=== PATIENT | male | born 1940 | race Caucasian/White ===

== ENCOUNTER 2016-12-08 19:11 | Inpatient (IN) ==
--- NOTE | 2016-12-08 19:15 | Emergency Department Note ---
Disposition Clinical Impression: Chest pain, Bronchitis Disposition: Admitted As Inpatient Condition: Good General Adult HPI - General Chief complaint: ED Chest Pain Stated complaint: Cp Time Seen by Provider: 12/08/16 19:13 - Related Data Home Medications Medication Instructions Recorded Confirmed Clopidogrel [Plavix] 75 mg PO DAILY 12/08/16 12/08/16 Dorzolamide/Timolol [Cosopt] 1 drop BOTH EYES BID 12/08/16 12/08/16 Hydrochlorothiazide 12.5 mg PO 2XW PRN 12/08/16 12/08/16 Latanoprost [Xalatan] 1 drop BOTH EYES HS 12/08/16 12/08/16 Losartan Potassium [Cozaar] 100 mg PO DAILY 12/08/16 12/08/16 Metoprolol [Lopressor] 50 mg PO BID 12/08/16 12/08/16 Nitroglycerin 0.4 mg SL Q5MIN PRN 12/08/16 12/08/16 Rosuvastatin [Crestor] 40 mg PO HS 12/08/16 12/08/16 Allergies Allergy/AdvReac Type Severity Reaction Status Date / Time No Known Allergies Allergy Verified 12/08/16 19:31 Course Vital Signs Temperature 99.3 F 12/08/16 19:13 Pulse Rate 74 12/08/16 19:13 Respiratory Rate 18 12/08/16 19:13 Blood Pressure 178/91 12/08/16 19:13 O2 Sat by Pulse Oximetry 95 12/08/16 19:13 Temperature 99.3 F 12/08/16 19:13 Pulse Rate 81 12/08/16 20:26 Respiratory Rate 18 12/08/16 21:20 Blood Pressure 144/75 12/08/16 21:20 O2 Sat by Pulse Oximetry 93 L 12/08/16 20:26 Oxygen Delivery Oxygen Delivery Room Air Medical Decision Making - Lab Data Lab Results 12/08/16 12/08/16 Range/Units 19:36 19:36 PT 12.3 H (9.4-12.1) Seconds INR 1.1 APTT 27.4 (26.0-36.0) Seconds Troponin I 0.03 (0-0.03) ng/mL Attestation Statement - Attestation Attestation: I examined this patient and my medical decision-making was reviewed with the POWER [employer]ALL[employer] MACHINE OPERATOR/PA/Advanced Practice Nurse/Resident Physician. I agree with the documented findings, disposition and treatment plan as described except to the extent set forth below. [id number] time provided in conjunction with resident physician [facility]. He appears in no acute distress on exam. Plan of care and management discussed by me with the resident
--- NOTE | 2016-12-08 19:18 | Emergency Department Note ---
Disposition Clinical Impression: Bronchitis Chest pain Qualifiers: Chest pain type: unspecified Qualified Code(s): R07.9 - Chest pain, unspecified Disposition: Admitted As Inpatient Condition: Good [facility]errals: [facility]Primary Care Provider[facility] - Forms: ED Satisfaction Letter Time of Disposition: 20:27 Chest Pain HPI - General Chief Complaint: ED Chest Pain Stated Complaint: Cp Time Seen by Provider: 12/08/16 19:13 Source: patient, EMS Mode of arrival: EMS Limitations: no limitations Vital Signs Reviewed: Yes Nursing Notes Reviewed: Yes - History of Present Illness HPI Narrative: Patient is a 76-year-old male with past medical history of CAD, multiple previous MRIs, multiple previous stents, bypass surgery, hypertension, high cholesterol, prediabetic, CKD. He presents today as a transfer from the [facility]. The patient states that he was having upper respiratory symptoms of significant coughing, rhinorrhea. Today, he began developing and centered chest pain that was dull in nature, constant. It was initially severe and then is now dull. Denies any other symptoms of nausea, vomiting, fevers, abdominal pain, current shortness of breath. Patient thinks that this could be due to coughing and bronchitis. However, due to significant cardiac history, with the [facility] to be evaluated further. Troponin was 0.02 at the [place] , no acute ST changes on EKG from the [facility], labs showed CKD with creatinine at 1.3. Chest x-ray showed no acute cardiopulmonary process. - Related Data Allergies Allergy/AdvReac Type Severity Reaction Status Date / Time No Known Allergies Allergy Verified 12/08/16 19:31 All systems ED: reviewed and negative except as stated. Chest Pain PMH - Past Medical History Medical history: Reports: coronary artery disease, hyperlipidemia, hypertension Physical Exam - General Limitations: no limitations General appearance: alert, in no apparent distress - Head Head exam: atraumatic, normocephalic, normal inspection - Eye Eye exam: Present: normal appearance, PERRL, EOMI - ENT ENT exam: normal exam, normal oropharynx, mucous membranes moist - Neck Neck exam: Present: normal inspection, full ROM, trachea midline - Chest Chest inspection: Present: normal inspection, symmetric chest wall rise. Absent : tenderness, rash - Respiratory Respiratory exam: Present: wheezes (Wheezes in bilateral lower lobes) - Cardiovascular Cardiovascular exam: Present: regular rate, normal rhythm, normal heart sounds - Abdominal Exam Abdominal exam: Present: soft, Non-Tender. Absent: tenderness, distention, guarding, rebound, rigidity - Extremities Exam Extremities exam: Present: normal inspection, full ROM. Absent: tenderness, pedal edema - Back Exam Back exam: Present: normal inspection, full ROM. Absent: tenderness - Neurological Exam Neurological exam: Present: alert, oriented X3 - Psychiatric Psychiatric exam: Present: normal affect, normal mood - Skin Skin exam: Present: warm, dry, intact, normal color Course Course Narrative: No acute distress on presentation. Physical exam was benign except for wheezes heard in bilateral LL. No tenderness to palpation of the chest. Patient says the chest pain. He has agreed to take nitroglycerin. This should help with chest pain and hypertension. We will repeat EKG here, troponin level and then we will admit the patient for chest pain rule out. Patient's HEART score is 5, and with current chest pain and multiple risk factors, would not feel comfortable sending home without further evaluation. 20:13 Repeat EKG here shows NSR with no acute ST changes. Trop 0.03. Chest pain is gone after nitroglycerin tablet. Due to significant risk factors and chest pain going away after nitroglycerin, we will admit the patient for chest pain brought. Patient also has signs and symptoms of bronchitis. 20:[address] Song for admission. Vital Signs Temperature 99.3 F 12/08/16 19:13 Pulse Rate 74 12/08/16 19:13 Respiratory Rate 18 12/08/16 19:13 Blood Pressure 178/91 12/08/16 19:13 O2 Sat by Pulse Oximetry 95 12/08/16 19:13 Temperature 99.3 F 12/08/16 19:13 Pulse Rate 74 12/08/16 19:13 Respiratory Rate 18 12/08/16 19:13 Blood Pressure 178/91 12/08/16 19:13 O2 Sat by Pulse Oximetry 95 12/08/16 19:13 Oxygen Delivery Oxygen Delivery Room Air Chest Pain - MDM Narrative Medical decision making narrative: No acute distress on presentation. Physical exam was benign except for wheezes heard in bilateral LL. No tenderness to palpation of the chest. Patient says the chest pain. He has agreed to take nitroglycerin. This should help with chest pain and hypertension. We will repeat EKG here, troponin level and then we will admit the patient for chest pain rule out. Patient's HEART score is 5, and with current chest pain and multiple risk factors, would not feel comfortable sending home without further evaluation. 20:13 Repeat EKG here shows NSR with no acute ST changes. Trop 0.03. Chest pain is gone after nitroglycerin tablet. Due to significant risk factors and chest pain going away after nitroglycerin, we will admit the patient for chest pain brought. Patient also has signs and symptoms of bronchitis. 20:[address] Song for admission. - Medical Records Medical records reviewed: Yes I reviewed the patient's medical records. - Lab Data Lab results reviewed: Yes I reviewed the patient's lab results. Lab Results 12/08/16 12/08/16 Range/Units 19:36 19:36 PT 12.3 H (9.4-12.1) Seconds INR 1.1 APTT 27.4 (26.0-36.0) Seconds Troponin I 0.03 (0-0.03) ng/mL - Radiology Data Radiology results reviewed: Yes I reviewed the patient's radiology results. - EKG Data EKG attestation: Yes I reviewed and interpreted this EKG. EKG results narrative: 12/08/2016 at 19:23. Normal sinus rhythm. Rate 77. QTC 432. Left axis deviation. T-wave inversions in aVR, aVL, V1 occasional PVCs, no acute ST elevation or depression. No previous EKG on file for comparison. Heart Score - Score History: Moderately Suspicious EKG: Normal Age: Greater than 65 Risk Factors: Equal/Greater than 3 risk factor or history of atherosclerotic disease Troponin: Less than normal limit HEART Score Total: 5 S.B.A.R. - S.B.A.R. Situation: Demographics, MOA Background: Presenting Complaint, Relevant PMH, Meds, & Allergies Assessment: Vital Signs, Course and respsone to treatment, Exam Concerns, Patient/Family Expectation, Pertinant Lab Results, Outstanding Labs Recommendation: Barrier(s) to disposition, Recommendation based on pending studies, treatments, or consults S.B.A.R. Report Given to: Dr. Duncan DuboseAAndrew Repor Time: 20:28
[2016-12-08] MEDS ORDERED: Nitroglycerin 0.4 MG TAB.SUBL SL PRN ×2 (19:31→22:15)
[2016-12-08 19:50] LABS: INR 1.1; Prothrombin Time 12.3 Seconds (9.4-12.1)
[2016-12-08 19:53] LABS: Activated Partial Thrombo Time 27.4 Seconds (26.0-36.0)
[2016-12-08] MEDS ORDERED: Latanoprost 2.5 ML BOTTLE BOTH EYES SCH (22:15)
[2016-12-08] MEDS ORDERED: Pantoprazole 40 MG VIAL IVP STA (22:19)
[2016-12-08] MEDS ORDERED: *HR* Morphine 2 MG/ML SYRINGE IVP PRN (22:19)
[2016-12-08] MEDS ORDERED: Naloxone 0.4 MG/ML INJ IVP PRN (22:19)
[2016-12-08] MEDS ORDERED: *HR* Promethazine 25 MG/ML VIAL IVP PRN (22:19)
[2016-12-08] MEDS ORDERED: Nicotine 21 MG PATCH.TD24 TD PRN (22:19)
[2016-12-08] MEDS ORDERED: *HR* OxyCODONE Immed Rel 5 MG TABLET PO PRN (22:19)
[2016-12-08] MEDS ORDERED: Benzonatate 100 MG CAPSULE PO PRN (22:19)
[2016-12-08] MEDS ORDERED: Acetaminophen 325 MG TABLET PO PRN (22:19)
[2016-12-08] MEDS ORDERED: Albuterol 2.5 MG/3 ML NEBULIZER IH PRN (22:19)
[2016-12-08] MEDS ORDERED: 0.9 % Sodium Chloride 1,000 ML IVC SCH (22:30)
[2016-12-08] MEDS ORDERED: Azithromycin 500 MG in D5% in Water 250 ML IVPB SCH (23:00)
[2016-12-08] MEDS: Ipratropium/Albuterol Neb 3 ML IH SCH (23:13)
[2016-12-08 23:19] LABS: Magnesium 1.8 mg/dL (1.6-2.6); Phosphorous 2.9 mg/dL (2.3-4.7)
[2016-12-08] MEDS: *HR* Heparin 5,000 UNIT/ML VIAL SQ SCH (23:22)
[2016-12-08] MEDS: Dorzolamide/Timolol OPTH 10 ML BOTTLE BOTH EYES SCH (23:31)
--- NOTE | 2016-12-09 01:54 | Internal Med History&Physical ---
Date of Encounter: 12/08/16 Time of Encounter: 22:30 Assessment and Plan (1) Acute chest wall pain Current visit: Yes Status: Acute . (2) Chest pain, rule out acute myocardial infarction Current visit: Yes Status: Acute . (3) Chest pain with moderate risk of acute coronary syndrome Current visit: Yes Status: Acute . (4) HTN (hypertension) Current visit: Yes Status: Chronic . Qualifiers: Hypertension type: essential hypertension Qualified Code(s): I10 - Essential (primary) hypertension (5) HLD (hyperlipidemia) Current visit: Yes Status: Chronic . Qualifiers: Hyperlipidemia type: mixed hyperlipidemia Qualified Code(s): E78.2 - Mixed hyperlipidemia (6) CAD (coronary artery disease), grindstone coronary artery Current visit: Yes Status: Chronic . Qualifiers: [place] vs. transplanted heart: grindstone heart Associated angina: angina presence unspecified Qualified Code(s): I25.10 - Atherosclerotic heart disease of grindstone coronary artery without angina pectoris (7) Hx of CABG Current visit: Yes Status: Chronic . (8) History of PTCA Current visit: Yes Status: Chronic . (9) URI (upper respiratory infection) Current visit: Yes Status: Acute . Qualifiers: URI type: unspecified URI Qualified Code(s): J06.9 - Acute upper respiratory infection, unspecified (10) Sinobronchitis Current visit: Yes Status: Acute . (11) Pleuritic chest pain Current visit: Yes Status: Acute . (12) Acute and chronic respiratory failure with hypoxia Current visit: Yes Status: Acute . (13) Sleep apnea with use of continuous positive airway pressure (CPAP) Current visit: Yes Status: Chronic . (14) COPD (chronic obstructive pulmonary disease) with acute bronchitis Current visit: Yes Status: Acute . Internal Medicine - H&P: HPI Chief complaint: Chest pain Admitted From: Hospital to Hospital Transfer (Transfer [facility] urgent care center to [facility] emergency department) Plans for Post Hospital Care: Home History of present illness: Mr. Cheney is a 76 year old male I am seeing the patient with medical history significant for CAD/multiple PTCAstents/YZPAe1o/AMIs, COPD, MOISES (nocturnal Cpap) , glaucoma, CKD III,type II pre-DM, early Parkinson's, degenerative osteoarthritis, osteopenia, diverticulosis coli/diverticulitis/hemorrhoids, obesity, former smoker The patient was visited and interviewed and examined. Patient is admitted to [facility] via the emergency department as a referral from [facility] urgent care center with the patient presented company of family with report of midsternal chest pain that began the morning of presentation associated with shortness of breath. Dull. Constant. Intensity seemed to vary with respiratory effort, specifically cough or movement. The quite severe and a 6-8/10 in severity and it subsided to a more dull boring 2-4/10 severity accompanying him to the emergency room. Patient had taken a full dose aspirin per morning of onset of symptoms. Patient did not take sublingual nitroglycerin in his possession. He had symptoms of what he thought to be a chest cold with chest congestion and rhinorrhea that began 2-3 days prior to onset of these symptoms. He did experience repetitive (hard)coughing with feelings of shortness of air at rest and with activity and sensation of audible wheezing. At times has been productive of mucoid sputum. Volume has been scant. He denies any hemoptysis. His pain was first experience of following repetitive coughing and he continues to experience a feeling of discomfort with coughing in the mid chest [facility]: Sg 97.2 pulse 76-88 respirations 18-20 BP 170-187/83-86 O2 saturation 98% on room air. CK 186. ENT -proBNP 227. Metabolic panel normal. BUN 13 creatinine 1.33 GFR 55. Hepatic function normal. Magnesium 1.8. WBC 7.5 hemoglobin 14.4 platelets 154,000. Differential a increase in monocytes. Troponin measurement 0.02. PA and lateral chest x-ray demonstrated no active cardiopulmonary process. Status post CABG. EKG demonstrated normal sinus rhythm at 86 bpm pulmonary disease pattern noted with left anterior fascicular block and left axis deviation and voltage in limb and precordial leads and poor R-wave progression likely transition V5 and V6 Q-wave in lead 3 rule out age-indeterminate inferior wall injury. Rule out age-indeterminate anterior wall injury. Nonspecific ST-T wave changes. Possible left atrial enlargement. Findings in the ED: Temperature 99.3 pulse 74-81 respirations 18 BP 144-178/75-91 and O2 saturation 93-95% room air. PT 12.3 INR 1.1 PTT 27.4. Troponin measurement 0.3. EKG normal sinus rhythm rate 77. Left axis deviation. Nonspecific ST-T wave changes. No acute ischemic changes. Premature ventricular contractions. We will progression with late transition. Age-indeterminate inferior wall and anterior wall injuries. Left atrial enlargement. Left anterior fascicular block. Preliminary impression suggests atypical chest pain syndrome in the setting of upper respiratory tract infection with a sinobronchial features and reactive airway symptoms with cough and bronchospasm. The quality of pain with cough more pleuritic. Voiding studies thus far nondiagnostic for cardiogenic focus. Hypertension presents poorly controlled. Relative resting hypoxemia noted. Mild chronic kidney disease. Given patient's history/comorbidities in the setting of his advanced age and presenting complaints and findings he is at risk for further acute clinical decline and morbidity. Workup and treatment will proceed comprehensively. Cumulative laboratory and radiographic data base was reviewed, considered and discussed. Pertinent ancillary medical records including [facility], [facility] and [facility] documentation, when available, was reviewed and considered. Given the patient's presenting concerns, past medical history, clinical findings and symptoms, he is admitted at this time will undergo further evaluation and disposition. Orders were written as per the computerized physician order takers supervisor system.......................................................................... .................... Consultative opinion and will be sought as clinical circumstances justify. Pain management needs will be addressed. Laboratory and radiographic data base will be updated as appropriate. Studies include: Cultures of blood and sputum, CPK, cardiac injury panel, BNP, coags, metabolic and hematologic panel, magnesium, phosphorus, ionized calcium, thyroid panel, lipid profile, A1c, C-peptide, CRP, sedimentation rate, respiratory infection profile, respiratory virus panel, blood gas, lactic acid, serologies, etc. Precautions: Aspiration, fall, delirium protocol/surveillance initiated. Telemetry with continuous hemodynamic monitoring and pulse oximetry initiated. Empiric antibody coverage: Intravenous Rocephin and azithromycin pending culture data. Special studies: CT chest, chest x-ray, telemetry, EKG, echocardiogram. Pulmonary toilet: Incentive spirometry, aerosol bronchodilator, mucolytic, antitussive, supplemental oxygen. Corticosteroid therapy. CPAP/BiPAP supplemental oxygen delivery. Aerosol Mucomyst therapy. Fluid and electrolyte repletion efforts will proceed. Careful attention to fluid balance and renal recovery will be emphasized. Avoidance of nephrotoxic exposure and adverse drug drug interaction in the setting of impaired renal function will be monitored closely. Acute coronary syndrome protocol/surveillance initiated. DVT and PUD prophylaxis initiated: PPI therapy, intermittent pneumatic cuffs. Subcutaneous heparin/Lovenox. Early ambulation will be encouraged. Immunization updates recommended. Influenza and pneumococcal vaccinations as part of ongoing preventative healthcare recommendations strongly recommended. Smoking cessation counseling briefly addressed. Patient is a former smoker. Advanced care directive discussion briefly addressed. Patient does not declare any healthcare restrictions at this time. Cardiovascular risk appraisal and cardiovascular risk reduction efforts will be emphasized. Physical and occupational therapy may be counseled to evaluate/assess patient's functional capacity and progress mobility if circumstances justify. Outpatient medication schedules will be reviewed, confirmed and facilitated as appropriate. Reconciliation of home treatments including adjustments, substitutions and reintroduction into the treatment regimen will address necessary maintenance therapies for chronic pre-existing medical conditions. Plan of care has been reviewed and discussed in detail with the patient. Questions addressed. Hospital course will be dependent upon clinical findings, treatment response and potential consultative interventions. Patient is at risk for further acute clinical decline and morbidity due to advanced age, presenting chief complaints, clinical findings and comorbidities. Condition is serious. Prognosis is cautiously optimistic. CODE STATUS is full. Past Med Surg Social Fam HX - Past Medical History Source: old records reviewed Medical history: arthritis, COPD (Obstructive sleep apnea. Nocturnal CPAP dependent. Community-acquired pneumonias 2.), coronary artery disease, diabetes, glaucoma, hyperlipidemia, hypertension, myocardial infarction, osteoporosis, renal disease ( H/O Pyrone's disease;treated.), other Psychiatric history: no psych history - Past Surgical History Surgical History: angioplasty/stent (Multiple angioplasties and stents.), coronary bypass (CABG) (Three-vessel), orthopedic, other (Compound fracture left forearm repair. Fracture left forearm repair.), sinus surgery ( Tonsillectomy adenoidectomy.), other (Colonoscopy. Anoscopy. Upper endoscopy. Camera/capsule endoscopy.) - Social History Smoking Status: Former smoker Smokeless Tobacco Status: No Alcohol use: none Drug use: none Occupational status: retired Current living situation: With Family Activity Level: Independent ambulation, Mostly sedentary - Family History Father Adopted: [place]: Iris Cheney Family Member Ethnicity: Non- Living Status: Age at : 82 Cause of : Lung Cancer Hx Family Cancer: Yes Hx Family Endocrine Disorder: Yes Internal Medicine - H&P: Meds Clopidogrel [Plavix] 75 mg PO DAILY 12/08/16 [History] Dorzolamide/Timolol [Cosopt] 1 drop BOTH EYES BID 12/08/16 [History] Hydrochlorothiazide 12.5 mg PO 2XW PRN 12/08/16 [History] Latanoprost [Xalatan] 1 drop BOTH EYES HS 12/08/16 [History] Losartan Potassium [Cozaar] 100 mg PO DAILY 12/08/16 [History] Metoprolol [Lopressor] 50 mg PO BID 12/08/16 [History] Nitroglycerin 0.4 mg SL Q5MIN PRN 12/08/16 [History] Rosuvastatin [Crestor] 40 mg PO HS 12/08/16 [History] Allergies No Known Allergies Allergy (Verified 12/08/16 19:31) All Systems PM: A 10-system review of systems was performed and is negative for pertinent findings except as documented above in the HPI. - Constitutional Constitutional: as per HPI, no chills, no fever(s), no night sweats - EENT Eyes: as per HPI, no change in vision, no discharge, no pain, no photophobia Ears: as per HPI, decreased hearing, no ear discharge, no ear pain, no tinnitus Nose, mouth and throat: nasal congestion, post-nasal drip, sinus pressure, other , no dysphagia, no nasal discharge, no neck pain, no sore throat - Cardiovascular Cardiovascular ROS IM: as per HPI, chest pain, dyspnea, no diaphoresis, no lightheadedness, no palpitations, no syncope - Respiratory Respiratory: as per HPI, cough, dyspnea, dyspnea on exertion, wheezing, chest congestion, pain with cough, no hemoptysis, no excessive phlegm production, no change in phlegm color - Gastrointestinal Gastrointestinal: as per HPI, no abdominal pain, no diarrhea, no hematemesis, no hematochezia, no melena, no nausea, no vomiting - Genitourinary Genitourinary ROS male: as per HPI - Musculoskeletal Musculoskeletal ROS IM: as per HPI, no numbness, no tingling - Integumentary Integumentary IM: as per HPI, no rash, no unusual bruising - Neurological Neurological ROS: as per HPI, no confusion, no convulsions, no focal weakness, no numbness, no tingling, no tremor(s) - Psychiatric Psychiatric: as per HPI - Endocrine Endocrine IM: as per HPI - Hematologic/Lymphatic Hematologic/Lymphatic: as per HPI, no easy bruising - Allergic/Immunologic Allergic/Immunologic: as per HPI - Constitutional Vitals: Temp Pulse Resp BP Pulse Ox 99.2 F 79 16 158/84 95 12/08/16 22:18 12/08/16 22:18 12/08/16 22:18 12/08/16 22:18 12/08/16 22:18 General appearance: Present: cooperative, mild distress, A&O X 3, pleasant, obese, answers questions appropriately - Head Head exam: Present: atraumatic, normocephalic - Eye Eye exam: Present: EOMI, PERRL, conjuntiva pink, sclera anicteric Pupils: Present: normal accommodation, PERRL - ENT ENT exam: Present: mucous membranes moist, normal external ear exam, normal oropharynx - Neck Neck exam general surgery: Present: full ROM, supple, trachea midline. Absent: lymphadenopathy, tenderness, nuchal rigidity - Respiratory Respiratory exam: Present: chest wall tenderness, decreased breath sounds, wheezes. Absent: accessory muscle use, rales, rhonchi - Cardiovascular Cardiovascular exam: Present: distant heart sounds, RRR, +S1, +S2. Absent: diastolic murmur, gallop, rubs, systolic murmur - GI/Abdominal GI/Abdominal exam: Present: normal bowel sounds, soft, no peritoneal signs. Absent: distended, tenderness - Extremities Exam Extremities exam: Present: full ROM, warm, radial pulses palpable and symetrical. Absent: calf tenderness, cyanotic, pedal edema - Neurological Exam Neurological exam: Present: alert, CN II-XII intact, oriented X3, no focal deficits. Absent: pronater drift, facial droop, speech deficit - Psychiatric Psychiatric exam: Present: normal affect, normal mood - Skin Skin exam: Present: dry, intact, warm. Absent: petechiae, rash, urticaria, vesicles Internal Med - H&P Results - Labs Labs: Cardiac Enzymes 02/03/17 Range/Units 22:54 Troponin I 0.01 (0-0.03) ng/mL - Impressions Vital Signs Temp Pulse Resp BP Pulse Ox 12/08/16 22:18 99.2 F 79 16 158/84 95 12/08/16 21:20 18 144/75 12/08/16 20:26 81 18 135/65 93 L 12/08/16 19:13 99.3 F 74 18 178/91 95 Intake and Output 12/08/16 12/08/16 12/09/16 15:59 23:59 07:59 Intake Total 250 / 250 Balance 250 / 250 Intake: IV Fluids 250 / 250 Zithromax 500 mg In 250 / 250 Dextrose 5% 250 ML @ 252 mls/hr IVPB Q24H [facility] Rx#: [id number] Other: Weight 91.444 kg Cardiac Enzymes 12/08/16 12/08/16 Range/Units 22:54 19:36 Troponin I 0.01 0.03 (0-0.03) ng/mL Abnormal lab results PT 12.3 Seconds (9.4-12.1) H 12/08/16 19:36 Allergies Allergy/AdvReac Type Severity Reaction Status Date / Time No Known Allergies Allergy Verified 12/08/16 19:31 Laboratory Results PT 12.3 Seconds (9.4-12.1) H 12/08/16 19:36 INR 1.1 12/08/16 19:36 APTT 27.4 Seconds (26.0-36.0) 12/08/16 19:36 Lactic Acid 1.9 mmol/L (0.5-2.2) 12/08/16 22:54 Phosphorus 2.9 mg/dL (2.3-4.7) 12/08/16 22:54 Magnesium 1.8 mg/dL (1.6-2.6) 12/08/16 22:54 Troponin I 0.01 ng/mL (0-0.03) 12/08/16 22:54 B-Natriuretic Peptide 67 pg/mL (0-100) 12/08/16 22:54 Lipase 37 Units/L (8-78) 12/08/16 22:54 - VTE Documentation of Mechanical Device: Graduated compression elastic hosiery
[2016-12-09 04:13] LABS: Basophils % 0.1 %; Eosinophils % 0.1 %; Hematocrit 40.5 % (37.5-50.1); Hemoglobin 13.4 g/dL (12.9-16.9); Immature Granulocytes % 0.4 % (0-4); Lymphocytes # 1.1 K/mcL (0.6-4.6); Mean Corpuscular HGB Conc 33.1 g/dL (31.6-35.5); Mean Corpuscular Hemoglobin 30.5 pg (28.0-33.3); Mean Corpuscular Volume 92.3 fL (83.0-100.0); Mean Platelet Volume 9.6 fL (9.4-12.4); Monocytes # 0.7 K/mcL (0.0-1.3); Monocytes % 9.4 %; Platelet Count 143 K/mcL (140-400); Red Blood Count 4.39 M/mcL (4.19-5.50); Red Cell Distribution Width 12.1 % (11.5-14.5)
[2016-12-09] MEDS: Ipratropium/Albuterol Neb 3 ML IH SCH ×2 (04:29→12:03)
[2016-12-09 04:32] LABS: Alanine Aminotransferase 19 Units/L (0-55); Albumin 3.6 g/dL (3.5-5.0); Albumin/Globulin Ratio 1.2 (1.1-2.2); Alkaline Phosphatase 57 Units/L (38-126); Aspartate Amino Transferase 23 Units/L (5-34); BUN/Creatinine Ratio 11 (6-26); Bilirubin,Total 0.8 mg/dL (0.2-1.2); Blood Urea Nitrogen 13 mg/dL (8-26); C-Reactive Protein 48 mg/L (Less than 5); Calcium 8.8 mg/dL (8.6-10.8); Carbon Dioxide 20 mEq/L (19-29); Chloride 101 mEq/L (98-109); Chol/HDL Ratio 2.5 (0-4.9); Cholesterol 130 mg/dL (< 200); Globulin 3.1 g/dL (2.4-3.5); Glucose 118 mg/dL (70-99); HDL Cholesterol 52 mg/dL (40-59); LDL Cholesterol,Calculated 64 mg/dL (0-99); Osmolality,Calculated 277 (280-300); Potassium 3.7 mEq/L (3.5-4.5); Sodium 133 mEq/L (136-145); Total Protein 6.7 g/dL (6.0-8.3); Triglycerides 69 mg/dL (< 150); eGFR For African Americans > 60 (> 60); eGFR For Non-African Americans > 60 (> 60)
[2016-12-09 05:07] LABS: Thyroid Stimulating Hormone 0.324 mcIU/mL (0.350-4.840)
[2016-12-09] MEDS ORDERED: Famotidine 20 MG/2 ML VIAL IVP SCH (06:00)
[2016-12-09 08:10] LABS: Adenovirus Not Detected (Not Detect); Coronavirus 229E Not Detected (Not Detect); Coronavirus HKU1 Not Detected (Not Detect); Coronavirus NL63 Not Detected (Not Detect); Coronavirus OC43 Not Detected (Not Detect); Human Metapneumovirus Not Detected (Not Detect); Human Rhinovirus/Enterovirus Not Detected (Not Detect); Influenza A Subtype 2009 H1 Not Detected (Not Detect); Influenza A Untypeable Not Detected (Not Detect); Influenza B Not Detected (Not Detect); Parainfluenza Virus 1 Not Detected (Not Detect); Parainfluenza Virus 2 Not Detected (Not Detect); Parainfluenza Virus 3 Not Detected (Not Detect)
[2016-12-09 08:11] LABS: Bordetella Pertussis Not Detected (Not Detect); Chlamydophila pneumoniae Not Detected (Not Detect); Mycoplasma pneumoniae Not Detected (Not Detect); Parainfluenza Virus 4 Not Detected (Not Detect); Respiratory Syncytial Virus Not Detected (Not Detect)
--- NOTE | 2016-12-09 08:54 | Discharge Summary ---
Date of Encounter: 12/09/16 Time of Encounter: 08:15 - Discharge Diagnosis (1) Bronchitis Priority: Primary Status: Acute Comments: Acute bronchitis (2) Pleuritic chest pain Priority: Secondary Status: Acute (3) CAD (coronary artery disease), [place] coronary artery Priority: Secondary Status: Chronic Qualifiers: [place] vs. transplanted heart: [place] heart Associated angina: angina presence unspecified Qualified Code(s): I25.10 - Atherosclerotic heart disease of [place] coronary artery without angina pectoris (4) HLD (hyperlipidemia) Priority: Secondary Status: Chronic Qualifiers: Hyperlipidemia type: mixed hyperlipidemia Qualified Code(s): E78.2 - Mixed hyperlipidemia (5) HTN (hypertension) Priority: Secondary Status: Chronic Qualifiers: Hypertension type: essential hypertension Qualified Code(s): I10 - Essential (primary) hypertension - Discharge Medications Prescriptions: Azithromycin [Zithromax Tri-Rubin] 500 mg PO DAILY #7 tablet Oseltamivir [Tamiflu] 75 mg PO BID #10 capsule Home Medications: Clopidogrel [Plavix] 75 mg PO DAILY 12/08/16 [History] Dorzolamide/Timolol [Cosopt] 1 drop BOTH EYES BID 12/08/16 [History] Hydrochlorothiazide 12.5 mg PO 2XW PRN 12/08/16 [History] Latanoprost [Xalatan] 1 drop BOTH EYES HS 12/08/16 [History] Losartan Potassium [Cozaar] 100 mg PO DAILY 12/08/16 [History] Metoprolol [Lopressor] 50 mg PO BID 12/08/16 [History] Nitroglycerin 0.4 mg SL Q5MIN PRN 12/08/16 [History] Rosuvastatin [Crestor] 40 mg PO HS 12/08/16 [History] Azithromycin [Zithromax Tri-Rubin] 500 mg PO DAILY #7 tablet 12/09/16 [Rx] Oseltamivir [Tamiflu] 75 mg PO BID #10 capsule 12/09/16 [Rx] Allergies/Adverse Reactions: Allergies No Known Allergies Allergy (Verified 12/08/16 19:31) Procedures/tests Complete & Pending: Procedures Performed prior 72 hours Category Date Time Status CT chest wo con [CT] Routine Cat Scan 12/09/16 07:[address] sinus wo con [CT] Routine Cat Scan 12/09/16 03:16 Completed EV echocardiogram Routine Y 12/09/16 03:16 Ordered Date of admission: 12/08/16 22:51 [facility] Discharging clinician: Linda Dolan Anticipated date of discharge: 12/09/16 - Patient Status Disposition: Home, Self-Care Condition: Good Overall status at discharge: patient is back to baseline - Discharge Instructions Instructions: Chest Pain (DC) Follow Up [facility]: [facility] [Primary Care Provider] - (in 1-2 weeks) - Diet and Activity Activity: resume usual activities as tolerated Diet: advance to your usual diet, low fat, low cholesterol, low salt diet Hospital course: Mr. Cheney is a 76 year old male with history of coronary artery disease, CABG who was observed in the hospital after presenting with pleuritic chest pain. He has been having cough. His troponins were trended. His EKG did not show any acute ST segment changes. His pain did not relieve after he was given nitroglycerin. He was started on treatment for acute bronchitis he underwent CT scan of the chest which showed findings suggestive of bronchitis. Patient was also positive for influenza A. He has been started on Tamiflu. He feels much better now and is stable to be discharged home. CT scan of his sinuses also showed acute sinusitis. He will complete a short course of azithromycin. - Time Spent with Patient Total time spent providing and/or coordinating discharge services: Less than 30 minutes (25 min) - Constitutional Vitals: Temp Pulse Resp BP Pulse Ox 98.5 F 70 16 154/81 95 12/09/16 07:11 12/09/16 07:11 12/09/16 07:11 12/09/16 07:11 12/09/16 07:11 General appearance: Present: cooperative, mild distress, A&O X 3, pleasant, obese, answers questions appropriately - Respiratory Respiratory exam: Present: CTAB. Absent: accessory muscle use, rales, rhonchi, wheezes - Cardiovascular Cardiovascular exam: Present: RRR, +S1, +S2. Absent: diastolic murmur, gallop, rubs, systolic murmur - GI/Abdominal GI/Abdominal exam: Present: normal bowel sounds, soft, no peritoneal signs. Absent: distended, tenderness - Extremities Exam Extremities exam: Present: warm, radial pulses palpable and symetrical. Absent : calf tenderness, cyanotic, pedal edema - VTE Documentation of Mechanical Device: Graduated compression elastic hosiery - Attending Attestation This document has been at least partially created by [employer] recognition technology by Dr. Dolan. Errors in grammar, wording or other phrases may exist. If errors are found after the documentation is signed, they will be addressed individually in the addendum section of this document when appropriate.
[2016-12-09 09:44] LABS: Bilirubin,Urine Negative (Negative); Blood,Urine Negative (Negative); Clarity,Urine Clear (Clear); Color,Urine Yellow (Yellow); Glucose,Urine (UA) Normal (Normal); Ketones,Urine Negative (Negative); Leukocyte Esterase,Urine Negative (Negative); Nitrite,Urine Negative (Negative); PH,Urine 6.5 pH Units (5.0-8.0); Protein,Urine Trace mg/dL (Neg-Trace); Specific Gravity,Urine 1.013 (1.010-1.025); Urobilinogen,Urine Normal (Normal)
[2016-12-09 09:46] LABS: Bacteria,Urine None Seen per hpf (None-Few); Hyaline Casts,Urine None Seen per lpf (None-Few); RBC,Urine 0-3 per hpf (0-3); Squamous Epithelial Cell,Urine Moderate per lpf (None-Few); WBC,Urine 0-3 per hpf (0-3)
[2016-12-09] MEDS ORDERED: Perflutren Lipid Microsphere 1.3 ML in 0.9 % Sodium Chloride 8.7 ML IVP ONE (10:46)
[2016-12-09] MEDS: *HR* Heparin 5,000 UNIT/ML VIAL SQ SCH (11:34)
[2016-12-09] MEDS: Dorzolamide/Timolol OPTH 10 ML BOTTLE BOTH EYES SCH (11:37)
[2016-12-09 11:59] VITALS: BP 186/72
--- NOTE | 2016-12-09 12:53 | ECHO - Doppler Report ---
Echo with Imaging Enhancement Agent Name: Adiel Cheney Date of Study: 12/09/2016 Date: 1940 Ht: 64.0 in Medical Record#: [id number] Age: 76 Wt: 207.0 lb Gender: Male BSA: 1.98 Order #: [id number] Location: [facility] Room #: 3B44 Reading Physician: Rei Herndon DO, ES, STEFANI PEDRO Risk Management Analyst: Heather Lancaster RVT Ordering Physician: Dickson Song MD Primary Physician: [facility] Indications: Chest pain, Coronary artery disease Impressions: LVEF 55-60%. Normal LV chamber size, wall thickness and function. Atypical septal motion consistent with post-operative status. Mild left ventricular diastolic dysfunction. Normal right ventricular structure and function. Moderately dilated left atrium. Mild aortic regurgitation. No evidence of pulmonary hypertension. Left Ventricular Wall Motion: Rest Echo Findings All wall segments showed normal motion. Findings: Study Quality * Technically adequate exam. ECG Findings * Normal sinus rhythm. Left Ventricle * LVEF 55-60%. * Normal LV chamber size, wall thickness and function. * Atypical septal motion consistent with post-operative status. * Mild left ventricular diastolic dysfunction. Right Ventricle * Normal right ventricular structure and function. Left Atrium * Moderately dilated left atrium. Right Atrium * Mildly dilated right atrium. Interatrial Septum * No evidence of PFO by color Doppler. Aortic Valve * Trileaflet aortic valve. * Mildly sclerotic aortic valve leaflets. * Mild aortic regurgitation. * No aortic stenosis. Mitral Valve * Mildly thickened mitral valve leaflets. * Trace mitral regurgitation. * No mitral stenosis. Tricuspid Valve * Normal tricuspid valve structure and function. * Trace tricuspid regurgitation. * No evidence of pulmonary hypertension. Pulmonic Valve * Pulmonic valve is not well visualized. * No pulmonic regurgitation. Aorta * Normally sized aortic root. Pericardium * The pericardium appears normal. IVC * Normal IVC dimensions and inspiratory collapse. Pulmonary Artery * Normal visualized portions of the main pulmonary artery. History Hypertension Hypercholesteremia History of CAD/PTCA Myocardial Infarction Coronary Artery Bypass Graft Contrast: Definity 1.3 ml in 8.7 ml of saline 2 ml. Measurements: BP: 161/ 74 2D Normal Values RVIDd: 4.10 cm <2.7 cm IVSd: 1.00 cm 0.6 - 1.0 cm LVIDd: 5.10 cm 3.7 - 5.6 cm LVPWd: .90 cm 0.6 - 1.1 cm LVIDs: 3.90 cm 1.5 - 3.6 cm AO: 2.70 cm < 4.0 cm LA: 4.60 cm 2.0 - 4.0cm %FS: 32.80 cm >25 % LVOT Diam: 2.00 cm LA volume: 50 Mitral Valve Peak E:1.11 m/sec Peak A:1.10 m/sec E/A Ratio:1 Peak E' Lat Kosta:6.82 cm/s Peak E' Med Kosta:4.78 cm/s E/E' Lat Ratio:16.3 E/E' Med Ratio:23.2 LVOT Peak Kosta:1.45 m/sec Mean Kosta:.97 m/sec Peak Grad:8.00 mmHg Mean Grad:5.00 mmHg Aortic Valve Peak Kosta:2.18 m/sec Mean Kosta:1.57 m/sec Peak Grad:19.00 mmHg Mean Grad:11.00 mmHg Valve Area:1.97 cm2 Pressure 1/2 time:640.00 msec AI pressure Half-time: 640.00 msec Tricuspid Valve TV Regurg Peak Grad: 11.00mmHg TV Regurg Peak Kosta: 1.64m/sec Updated by Rei Herndon DO, FACChao, STEFANI PEDRO on 12/09/2016 12:47:38 PM electronically signed on 12/09/2016 12:48:46 PM with status of Final Wall Motion [place]: 1=Normal, 2=Hypokinesis, 3=Akinesis, 4=Dyskinesis, 5=Aneurysmal, 6=Hyperkinetic, X=Not Visualized (Blank)=Missing
--- NOTE | 2016-12-10 20:18 | Electrocardiograph Report ---
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
== END 2016-12-09 13:47 | disposition home or self-care (01) | DRG 191 ==
LOC: 3BNU 19:11 → EMEROO 19:11 → 3BNU 21:35
PROVIDERS: ADMIT Internal Medicine; ATTEND Internal Medicine